=== PATIENT | male | born 1995 | race Caucasian/White ===

== ENCOUNTER 2021-09-26 17:01 | Emergency (ER) | payer SELFPAY ==
[~2021-09-26] VITALS: Ht 170.2 cm; Wt 73.0 kg
[2021-09-26 17:07] VITALS: BP 159/99
== END 2021-09-26 19:00 | disposition left against medical advice (07) ==
LOC: EDBD → ER 17:01
DX: Z53.21 Procedure and treatment not carried out due to patient leaving prior to being seen by health care provider (principal)
CPT/HCPCS: 99281

== ENCOUNTER 2021-09-29 11:27 | Emergency (ER) | payer MEDICARE, MEDICAID ==
[~2021-09-29] VITALS: Ht 170.2 cm; Wt 74.0 kg
[2021-09-29] MEDS ORDERED: BACITRACIN ZINC OINT UDPKT TOP ONE (16:30)
[2021-09-29] MEDS ORDERED: LIDOCAINE HCL/PF 1% 10 MG/ML 5ML VIAL INFIL ONE (16:30)
[2021-09-29] MEDS ORDERED: IBUPROFEN 600MG TABLET PO STA (16:34)
[2021-09-29] MEDS ORDERED: IBUP-2029 PO (19:01)
[2021-09-29 20:35] VITALS: BP 112/75
== END 2021-09-29 20:35 | disposition home or self-care (01) ==
LOC: ER 12:40
DX: S01.311A Laceration without foreign body of right ear, initial encounter (principal); S00.83XA Contusion of other part of head, initial encounter; S40.811A Abrasion of right upper arm, initial encounter; M25.511 Pain in right shoulder; M25.521 Pain in right elbow; R07.89 Other chest pain; Z98.890 Other specified postprocedural states; Y04.0XXA Assault by unarmed brawl or fight, initial encounter; Y93.89 Activity, other specified; Y92.018 Other place in single-family (private) house as the place of occurrence of the external cause
CPT/HCPCS: 12011; 70110; 70486; 73030; 73080; 99284; J3490

== ENCOUNTER 2022-06-13 | Emergency (ER) | payer MEDICARE, MEDICAID ==
[~2022-06-13] MED LIST: IBUP-2029 PO
== END 2022-06-13 03:52 | disposition left against medical advice (07) ==
LOC: ER
DX: Z53.21 Procedure and treatment not carried out due to patient leaving prior to being seen by health care provider (principal)